=== PATIENT | male | born 1985 | race Caucasian/White ===

== ENCOUNTER 2021-07-24 16:37 | Emergency (ER) | payer OTHER ==
[~2021-07-24 16:37] MED LIST: BACTROBAN OINT22 GM EXT; DICLOFENAC 1% TOP; FELDENE10 MG PO; IBUPROFEN600 MG PO; KEFLEX CAP 500500 MG PO
[2021-07-24] MEDS ORDERED: NAPROSYN500 MG PO (17:01)
== END 2021-07-24 17:45 | disposition home or self-care (01) ==
LOC: ER1 16:37
DX: K04.7 Periapical abscess without sinus (principal); F17.200 Nicotine dependence, unspecified, uncomplicated
CPT/HCPCS: 96372; 99282; J1885

== ENCOUNTER 2021-07-27 20:28 | Emergency (ER) | payer OTHER ==
[~2021-07-27 20:28] MED LIST changes: +NAPROSYN500 MG PO
[2021-07-27 21:25] LABS: HEMOGLOBIN 14.5 gm/dl (14.0-17.5); RED BLOOD COUNT 4.35 M/UL (4.20-5.50); WHITE BLOOD COUNT 6.1 K/UL (4.5-11.0)
[2021-07-27 21:48] LABS: BUN/CREATININE RATIO 23 (0-10)
[2021-07-27] MEDS ORDERED: LODINE CAP 300300 MG PO (22:01)
== END 2021-07-27 22:18 | disposition left against medical advice (07) ==
LOC: ER1 20:28
PROVIDERS: Physician Assistant
DX: K04.7 Periapical abscess without sinus (principal); F17.210 Nicotine dependence, cigarettes, uncomplicated
CPT/HCPCS: 70487; 80053; 85025; 86140; 87040; 99281; Q9967

== ENCOUNTER 2021-10-25 18:54 | Emergency (ER) | payer OTHER ==
[~2021-10-25 18:54] MED LIST changes: +LODINE CAP 300300 MG PO
== END 2021-10-25 23:45 | disposition home or self-care (01) ==
LOC: ER1 18:54
DX: J06.9 Acute upper respiratory infection, unspecified (principal); F17.200 Nicotine dependence, unspecified, uncomplicated; Z20.822 Contact with and (suspected) exposure to COVID-19; Z88.1 Allergy status to other antibiotic agents
CPT/HCPCS: 0240U; 71045; 87040; 87081; 87880; 99283